=== PATIENT | female | born 1945 | race Caucasian/White ===

== ENCOUNTER → 2019-07-31 12:30 | Outpatient (CLI) | payer MEDICARE, OTHER, SELFPAY ==
--- NOTE | 2019-07-31 | DI.MRI.S_ITS ---
PROCEDURE: MR HEAD/BRAIN WO/W CON INDICATIONS: Ocular migraine vs vision changes x 9 months TECHNIQUE: Noncontrast axial T1 spin echo, axial T2 fast spin echo, sagittal and axial FLAIR, coronal T2 fast spin echo, axial gradient echo, axial diffusion and ADC through the brain. After the administration of contrast, axial and coronal T1 spin echo with fat saturation through the brain. COMPARISON: None. FINDINGS: Image quality: Excellent. CSF spaces: Basal cisterns are patent. No extra-axial fluid collections. Ventricles are normal in size and shape. Brain: No midline shift. No intracranial bleeds or masses. No abnormal intracranial enhancement. There is cerebral volume loss for age. There is a mild degree of patchy high FLAIR signal within the periventricular and subcortical white matter. The brainstem appears normal. Diffusion-weighted images demonstrate no acute ischemic insults. No chronic ischemic insults. Normal intravascular flow voids are present. Skull and face: Calvarial marrow is normal in signal. Orbits appear normal. Sinuses: Sinuses and mastoids appear clear. IMPRESSION: 1. Mild diffuse cerebral volume loss. 2. Mild degree of white matter disease. Differential considerations include small vessel ischemic disease, migraines, vasculitides, diabetes mellitus, and demyelinating disorders, such as multiple sclerosis. Dictated by: Karuna Rey M.D. on 07/31/2019 at 13:31 Approved by: Karuna Rey M.D. on 07/31/2019 at 13:34
== END ==
PROVIDERS: Family Provider Family Medicine; PCP Family Medicine; Visit Provider Physician Assistant
DX: H53.30 Unspecified disorder of binocular vision (principal)
CPT/HCPCS: 70553

== ENCOUNTER → 2019-08-26 10:37 | Outpatient (CLI) | payer MEDICARE, OTHER, SELFPAY ==
[2019-08-26 12:44] LABS: Cholesterol 246 mg/dL (140-199); HDL Cholesterol 59 mg/dL (40-60); LDL Cholesterol Calculated 171 mg/dL (<100); Triglycerides 78 mg/dL (35-150)
== END ==
PROVIDERS: PCP Family Medicine; Visit Provider Psychiatry & Neurology Neurology
DX: G45.9 Transient cerebral ischemic attack, unspecified (principal)
CPT/HCPCS: 36415; 80061

== ENCOUNTER → 2019-08-26 12:58 | Outpatient (CLI) | payer MEDICARE, OTHER, SELFPAY ==
--- NOTE | 2019-08-26 | DI.MRI.S_ITS ---
PROCEDURE: MR HEAD/BRAIN WO/W CON INDICATIONS: Unspecified disorder of binocular vision TECHNIQUE: Noncontrast axial T1 spin echo, axial T2 fast spin echo, sagittal and axial FLAIR, coronal T2 fast spin echo, axial gradient echo, axial diffusion and ADC through the brain. After the administration of contrast, axial and coronal T1 spin echo with fat saturation through the brain. COMPARISON: [facility], , MR HEAD/BRAIN WO/W CON, 07/31/2019, 12:55. FINDINGS: Image quality: Excellent. CSF spaces: Basal cisterns are patent. No extra-axial fluid collections. Ventricles are normal in size and shape. Brain: No midline shift. No intracranial bleeds or masses. No abnormal intracranial enhancement. There is cerebral volume loss for age. There is periventricular white matter chronic small vessel ischemic change. The brainstem appears normal. Diffusion-weighted images demonstrate no acute ischemic insults. No chronic ischemic insults. Normal intravascular flow voids are present. Skull and face: Calvarial marrow is normal in signal. Orbits appear normal. Note is made of bilateral lens replacements. Sinuses: Sinuses and mastoids appear clear. IMPRESSION: Unremarkable study for age, without orbital abnormalities seen. No masses or abnormal enhancement can be seen. Note is made of age-appropriate brain parenchymal volume loss and chronic small vessel ischemic changes. Dictated by: Jackson Martinez M.D. on 08/26/2019 at 16:43 Approved by: Jackson Martinez M.D. on 08/26/2019 at 16:45
== END ==
PROVIDERS: PCP Family Medicine; Visit Provider Family Medicine
DX: H53.30 Unspecified disorder of binocular vision (principal)
CPT/HCPCS: 70553; A9579

== ENCOUNTER → 2019-10-09 12:05 | Outpatient (CLI) | payer MEDICARE, OTHER, SELFPAY ==
--- NOTE | 2019-10-09 | DI.US.S_ITS ---
PROCEDURE: US ABD AORTA ANEURYSM SCREEN INDICATIONS: HX SMOKING TECHNIQUE: Real time scanning was performed of the aorta and iliac arteries, with image documentation. COMPARISON: None. FINDINGS: Aorta: Proximal aortic diameter measures 2.1 cm. Mid-aorta measures 1.5 cm. Distal aortic diameter is 1.1 cm. Iliac arteries: Right common iliac artery measures 18 cm. Left common iliac artery measures 0.8 cm. IMPRESSION: No abdominal aortic or proximal common iliac artery aneurysm. Dictated by: Elvin Tuttle [facility] Interpreted: Bill Rios MD on 10/09/2019 at 14:50 Approved by: Bill Rios M.D. on 10/09/2019 at 15:44
--- NOTE | 2019-10-09 | DI.US.S_ITS ---
PROCEDURE: US PERIPH VENOUS LOW EXTREM LT INDICATIONS: LEFT LEG SWELLING AND PAIN TECHNIQUE: Real-time imaging, as well as color and pulse Doppler interrogation, were performed of the lower extremity deep veins from the inguinal ligament to the popliteal fossa. COMPARISON: None. FINDINGS: The common femoral, femoral and popliteal veins are normally compressible, and free of intraluminal thrombus. Color and pulse Doppler demonstrate normal phasic intraluminal flow. There is normal augmentation response to distal compression maneuver. IMPRESSION: No deep venous thrombosis identified within the left lower extremity. Dictated by: Elvin Tuttle [facility] Interpreted: Bill Rios MD on 10/09/2019 at 13:56 Approved by: Bill Rios M.D. on 10/09/2019 at 15:45
== END ==
PROVIDERS: Family Provider Family Medicine; PCP Family Medicine; Visit Provider Physician Assistant
DX: Z13.6 Encounter for screening for cardiovascular disorders (principal); M79.605 Pain in left leg; M79.89 Other specified soft tissue disorders; Z87.891 Personal history of nicotine dependence
CPT/HCPCS: 76706; 93971

== ENCOUNTER → 2019-12-10 15:06 | Outpatient (CLI) | payer MEDICARE, OTHER, SELFPAY ==
--- NOTE | 2019-12-10 | DI.US.S_ITS ---
PROCEDURE: US PERIPH VENOUS LOW EXTREM BI INDICATIONS: SWELLING, MASS AND LUMP BILAT LOWER LIMBS TECHNIQUE: Real-time imaging, as well as color and pulse Doppler interrogation, were performed of the deep veins of both legs from the inguinal ligament to the popliteal fossa. COMPARISON: None. FINDINGS: Right: The common femoral, femoral and popliteal veins are normally compressible, and free of intraluminal thrombus. Color and pulse Doppler demonstrate normal phasic intravascular flow. There is normal augmentation response to distal compression maneuver. Left: The common femoral, femoral and popliteal veins are normally compressible, and free of intraluminal thrombus. Color and pulse Doppler demonstrate normal phasic intravascular flow. There is normal augmentation response to distal compression maneuver. A right-sided Gonsalez's cyst can be seen that measures 1.2 x 0.5 x 1.2 cm. IMPRESSION: Negative for deep venous thrombosis. Dictated by: Jackson Martinez M.D. on 12/10/2019 at 16:15 Approved by: Jackson Martinez M.D. on 12/10/2019 at 16:16
== END ==
PROVIDERS: Family Provider Family Medicine; PCP Family Medicine; Referring Provider Physician Assistant; Visit Provider Physician Assistant
DX: R22.42 Localized swelling, mass and lump, left lower limb (principal); M71.21 Synovial cyst of popliteal space [Baker], right knee
CPT/HCPCS: 93970

== ENCOUNTER → 2020-04-01 10:26 | Outpatient (CLI) | payer MEDICARE, OTHER, SELFPAY ==
--- NOTE | 2020-04-01 | DI.CT.S_ITS ---
PROCEDURE: CT CHEST ABDOMEN W CON INDICATIONS: LOCALIZED ENLARGED LYMPH NODES TECHNIQUE: After the administration of oral contrast and intravenous contrast, 5 mm thick sections acquired from the lung apices to the iliac crests. 5 mm coronal and sagittal reformats were performed, with additional 7 mm coronal MIP reformats through the lungs. For radiation dose reduction, the following was used: automated exposure control, adjustment of mA and/or kV according to patient size. COMPARISON: None. FINDINGS: Image quality: Excellent. CHEST: Lungs and pleura: No acute air space opacities. No pleural effusions or pneumothorax. There is near occlusion of the right upper lobe bronchus secondary to the right hilar mass. There is a subpleural 9 mm diameter nodule within the right upper lobe posterolaterally, which is indeterminate. Mediastinum: Heart size is normal. No pericardial effusion. 42 mm diameter right hilar mass is present. The right hilar mass encases and partially narrows the right upper, right lower, and right middle lobe pulmonary arteries and bronchi. Thoracic aorta and central pulmonary arteries are normal in size. Esophagus is normal in caliber. No hiatal hernia. Chest wall: No axillary or supraclavicular adenopathy by size criteria. Thyroid gland is within normal limits. ABDOMEN: Solid organs: Liver is normal in size and enhancement. Gallbladder is within normal limits. Biliary system is non dilated. Pancreas enhances normally. Spleen is normal in size and enhancement. No adrenal nodules. Kidneys are normal in size and enhancement, without hydronephrosis. Peritoneum and bowel: Bowel loops demonstrate normal wall thickness and caliber. No free fluid or air. Nodes and vessels: No retroperitoneal or mesenteric adenopathy by size criteria. Aorta and inferior vena cava are normal in caliber. Bones: There is a sclerotic density within the right medial 9th rib measuring 12 mm. There is mild chronic appearing wedging of T9. No acute vertebral body compression fractures. Miscellaneous: No ventral hernias. IMPRESSION: 1. 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 Bronchoscopic biopsy is recommended for tissue diagnosis secondary to its central location. 2. Precarinal and subcarinal jeremy metastases. 3. Indeterminate right 9th rib lesion. Indeterminate right upper lobe nodule. These could be further assessed with PETCT examination, if clinically indicated. Dictated by: Karuna Rey M.D. on 04/01/2020 at 16:54 Approved by: Karuna Rey M.D. on 04/01/2020 at 17:03
[2020-04-01 11:24] LABS: Alanine Aminotransferase 11 IU/L (<35); Albumin 3.9 g/dL (3.5-5.0); Albumin Globulin Ratio 1.2 (1.0-2.8); Alkaline Phosphatase 95 U/L (38-126); Aspartate Aminotransferase 26 IU/L (14-36); BUN Creatinine Ratio 17.7 (6-22); Bilirubin Total 0.5 mg/dL (0.2-1.3); Blood Urea Nitrogen 14 mg/dL (7-17); Calcium 9.4 mg/dL (8.4-10.2); Carbon Dioxide 30 mmol/L (22-32); Chloride 105 mmol/L (98-107); Estimated Glomerular Filt Rate > 60.0 mL/min (>60); Globulin 3.2 g/dL (1.7-4.1); Glucose 103 mg/dL (80-110); HEMOLYSIS < 15 (0-50); Potassium 4.1 mmol/L (3.4-5.1); Sodium 140 mmol/L (137-145); Total Protein 7.1 g/dL (6.3-8.2)
== END ==
PROVIDERS: Family Provider Family Medicine; PCP Family Medicine; Referring Provider Family Medicine; Visit Provider Family Medicine
DX: R93.89 Abnormal findings on diagnostic imaging of other specified body structures (principal); C34.01 Malignant neoplasm of right main bronchus; C77.1 Secondary and unspecified malignant neoplasm of intrathoracic lymph nodes; R10.10 Upper abdominal pain, unspecified; R91.1 Solitary pulmonary nodule; M89.9 Disorder of bone, unspecified
CPT/HCPCS: 36415; 71260; 74160; 80053; Q9967

== ENCOUNTER → 2021-01-14 18:57 | Outpatient (CLI) | payer MEDICARE, OTHER, SELFPAY ==
[2021-01-14 19:27] LABS: Add Manual Diff / Slide Review NO; Basophils Absolute Auto 100 /uL (0-100); Basophils Percent Auto 1.1 % (0-2); Eosinophils Absolute Auto 100 /uL (0-450); Eosinophils Percent Auto 1.3 % (2-4); Hematocrit 24.8 % (36-46); Hemoglobin 8.2 g/dL (12.0-16.0); Lymphocytes Absolute Auto 1700 /uL (1100-4500); Lymphocytes Percent Auto 19.2 % (25-40); Mean Corpuscular HGB Conc 33.2 % (30-36); Mean Corpuscular Hemoglobin 35.9 PG (26-34); Mean Corpuscular Volume 108.1 fL (80-100); Monocytes Absolute Auto 1000 /uL (0-900); Monocytes Percent Auto 11.4 % (3-14); Neutrophils Absolute Auto 6100 /uL (1500-7000); Platelet Count 307 X10^3/uL (150-400); Red Blood Cell Count 2.29 X10^6/uL (4.0-5.2); Red Cell Distribution Width 25.6 % (11.6-14.8)
[2021-01-14 19:39] LABS: Alanine Aminotransferase 54 IU/L (<35); Albumin 3.8 g/dL (3.5-5.0); Albumin Globulin Ratio 1.3 (1.0-2.8); Alkaline Phosphatase 81 U/L (38-126); Aspartate Aminotransferase 46 IU/L (14-36); BUN Creatinine Ratio 9.8 (6-22); Bilirubin Total 0.3 mg/dL (0.2-1.3); Blood Urea Nitrogen 11 mg/dL (7-17); Calcium 9.1 mg/dL (8.4-10.2); Carbon Dioxide 32 mmol/L (22-32); Chloride 103 mmol/L (98-107); Estimated Glomerular Filt Rate 47.6 mL/min (>60); Globulin 2.9 g/dL (1.7-4.1); Glucose 114 mg/dL (80-110); HEMOLYSIS < 15 (0-50); Potassium 3.7 mmol/L (3.4-5.1); Sodium 138 mmol/L (137-145); Total Protein 6.7 g/dL (6.3-8.2)
[2021-01-14 19:42] LABS: Anisocytosis 2+; Poikilocytosis 1+
[2021-01-14 19:43] LABS: Macrocytosis 1+; Ovalocytes 1+
[2021-01-15 10:07] LABS: Bacteria Urine None Seen; RBC Urine None Seen (0-5/HPF)
[2021-01-15 10:10] LABS: Appearance Urine UA CLOUDY; Bilirubin Urine UA NEGATIVE (NEGATIVE); Color Urine UA YELLOW; Glucose Urine UA NEGATIVE (Negative); Ketones Urine UA NEGATIVE (NEGATIVE); Leukocyte Esterase Urine UA NEGATIVE (NEGATIVE); Nitrite Urine UA NEGATIVE (Negative); Occult Blood Urine UA TRACE-INTACT (Negative); Protein Urine UA TRACE (Negative); Specific Gravity Urine UA 1.025 (1.000-1.035); Urobilinogen Urine UA 0.2 E.U./dL (0.2)
[2021-01-15 10:23] LABS: Amorphous Sediment Urine 4+; WBC Urine 1-5/HPF (0-5/HPF)
[2021-01-15 10:24] LABS: Culture Indicated Urine Specimen Cultured
== END ==
PROVIDERS: Family Provider Family Medicine; PCP Family Medicine; Referring Provider Internal Medicine; Visit Provider Internal Medicine
DX: R74.8 Abnormal levels of other serum enzymes (principal); I87.2 Venous insufficiency (chronic) (peripheral)
CPT/HCPCS: 36415; 80053; 81001; 85025

== ENCOUNTER 2021-02-23 18:14 | Emergency (ER) | payer MEDICARE, OTHER, SELFPAY ==
[2021-02-23] VITALS (12 sets, daily range): BP systolic 110–140; BP diastolic 62–71; PULSE 57–76; RESP 9–27; TEMP 36.8; O2SAT 95–100; BMI 19.7
--- NOTE | 2021-02-23 | DI.RAD.S_ITS ---
PROCEDURE: XR SHOULDER LT MIN 2V INDICATIONS: POST REDUCTION TECHNIQUE: Single frontal view of the shoulder were acquired. COMPARISON: [facility], CR, XR SHOULDER LT MIN 2V, 02/23/2021, 19:22. FINDINGS: Bones: No dislocations. No suspicious bony lesions. Visualized ribs appear intact. Soft tissues: No suspicious soft tissue calcifications. IMPRESSION: Successful reduction of inferior dislocation/subluxation, with acute fracture at the humeral head/neck junction again noted. Dictated by: Chapo Garcia M.D. on 02/24/2021 at 8:16 Approved by: Chapo Garcia M.D. on 02/24/2021 at 8:17
--- NOTE | 2021-02-23 19:20 | DI.RAD.S_ITS ---
PROCEDURE: XR SHOULDER LT MIN 2V INDICATIONS: fell today on shoulder TECHNIQUE: 2 views of the shoulder were acquired. COMPARISON: [facility] ([facility], XR SHOULDER LT 1V, 02/23/2021, 13:48. FINDINGS: Bones: Humeral head is noted the inferior to the glenohumeral joint space. There is an appearance of humeral head fracture. Soft tissues: No suspicious soft tissue calcifications. IMPRESSION: Overall appearance anterior dislocation with what appears to be humeral head fracture. Dictated by: Monica Segura M.D. on 02/23/2021 at 19:45 Approved by: Monica Segura M.D. on 02/23/2021 at 19:47
--- NOTE | 2021-02-23 19:55 | ED.FALL ---
HPI - Fall General Chief Complaint: Fall Stated Complaint: Fell. Dislocated shoulder today Time Seen by Provider: 02/23/21 19:51 Source: patient Mode of arrival: Ambulatory Limitations: no limitations History of Present Illness HPI Narrative: Patient is a 75-year-old female. Has metastatic cancer and is on hospice. Is here for evaluation of a shoulder dislocation. She was sent from [facility]. She stated that she fell earlier today landing on her left side. She was seen at a clinic on the [place] and sent here for evaluation. Related Data Allergies Allergy/AdvReac Type Severity Reaction Status Date / Time No Known Drug Allergies Allergy Verified 02/23/21 18:26 Review of Systems Constitutional Constitutional: Denies fever(s) and Denies headache(s) Eyes Eyes: Denies blurry vision ENT Ears, Nose, Mouth, and Throat: Denies vertigo, Denies dizziness, Denies headache(s) and Denies sore throat Cardiovascular Cardiovascular: Denies chest pain and Denies dyspnea Respiratory Respiratory: Denies dyspnea Gastrointestinal Gastrointestinal: Denies abdominal pain Genitourinary Genitourinary: Denies dysuria Genitourinary: Denies dysuria Musculoskeletal Musculoskeletal: Denies tingling Comments: Left arm pain Integumentary/Breasts Skin/Breast: Denies lesions and Denies rash Neurologic Neurologic: Denies vertigo, Denies dizziness, Denies headache(s) and Denies tingling Psychiatric Psychiatric: Denies depression Hematologic/Lymphatic On Anticoagulants: No Allergic/Immunologic Allergic/Immunologic: Denies urticaria Patient History Medical History Lung cancer metastatic to bone Social History Smoking Status: Unknown if ever smoked Smoking Status: Unknown if ever smoked alcohol intake frequency: holidays/special occasions only Substance Use Type: does not use Exam Initial Vital Signs Initial Vital Signs: Vital Signs Temperature 98.2 F 02/23/21 18:24 Pulse Rate 69 02/23/21 18:24 Respiratory Rate 14 02/23/21 18:24 Blood Pressure 110/70 02/23/21 18:24 Pulse Oximetry 98 02/23/21 18:24 Const General: cooperative Limitations: mental status not altered [facility] Head: normal to inspection and normocephalic Eyes General: appearance normal, both eyes and all related structures Resp Effort & Inspection: normal respiratory effort Auscultation: clear to auscultation bilaterally Cardio Rate: regular rate Rhythm: regular rhythm Pulses: radial pulses present on the left GI Inspection: non-distended Palpation: soft Back/Spine/Pelvis Cervical Spine: No cervical spinal tenderness Skin Lesions: no lesions Rashes: no rashes Neuro General: patient alert, patient awake and patient oriented x3 Cognition: normal cognition Speech: speech normal Other: Patient does have sensation to the lateral aspect of the upper arm. Extrem General: capillary refill normal Other: Patient does have tenderness and obvious deformity to left shoulder. Her left elbow and left wrist and left forearm and left hand are unremarkable. There is no other orthopedic injuries found on the exam or reported by the patient. Psych Appearance: grossly normal and well kempt Procedures Orthopedic Joint Reduction Joint #1: Time Out Performed: Yes Side: left Joint Reduction Location: shoulder Analgesia: procedural sedation Shoulder Technique Used (if applicable): Milch Technique used: direct manipulation Post-reduction neuro exam: intact Post-reduction vascular: intact Post Reduction X-Ray Obtained: Yes Post Reduction X-Ray Results: reduced Splint Applied: No Patient Tolerated Procedure: Well and No complications Orthopedic Splinting/Casting Injury #1: Side: left Upper Extremity Injury Location: shoulder Upper Extremity Immobilizer: sling/shoulder immobilizer Post splinting neuro exam: intact Post splinting vascular exam: intact Placed by: Provider Procedural Sedation Consent signed: Yes Time out performed: Yes Indication: fracture/dislocation reduction Presedation Evaluation: See HPI ASA Class: III Mallampati Airway Classification: Class I Preparation: application development project manager applied, pulse oximeter, capnometry used and supplemental O2 applied IV Propofol dose (mg): 50 Intraservice time/total sedation time (min): 15 ED Sedation Level: Moderate (Concious) Patient Tolerated Procedure: Well Complications: none Course Orders Ordered: ED Orders 02/23/21 19:20 XR shoulder LT min 2V Stat 02/23/21 21:16 RT Consult Eval and Treat Now Discontinued Medications Hydromorphone HCl (Hydromorphone 1 Mg Inj) 1 mg IM NOW ONE Stop: 02/23/21 19:56 Hydromorphone HCl (Hydromorphone 1 Mg Inj) 1 mg IV NOW ONE Stop: 02/23/21 20:18 Last Admin: 02/23/21 20:19 Dose: 1 mg Documented by: TOMMY Sodium Chloride (Normal Saline 0.9%) 1,000 mls @ 150 mls/hr IV CONT SOFÍA Last Infusion: 02/23/21 23:17 Dose: 0 mls/hr Documented by: Admin: 02/23/21 21:34 Dose: 150 mls/hr Documented by: TOMMY Propofol (Propofol 200 Mg/20 Ml Vial) 50 mg 1 mg/kg (50 mg) IV NOW ONE Stop: 02/23/21 21:15 Last Admin: 02/23/21 21:51 Dose: 50 mg Documented by: TOMMY Vital Signs Vital signs: Vital Signs - 8 hr 02/23/21 18:24 02/23/21 21:45 02/23/21 22:01 Temperature 98.2 F Pulse Rate 69 76 68 Respiratory Rate 14 18 12 Blood Pressure 110/70 140/66 Pulse Oximetry 98 96 99 02/23/21 22:04 02/23/21 22:05 02/23/21 22:10 Temperature Pulse Rate 59 L 61 62 Respiratory Rate 14 16 9 L Blood Pressure Pulse Oximetry 95 99 02/23/21 22:13 02/23/21 22:20 02/23/21 22:30 Temperature Pulse Rate 57 L 60 58 L Respiratory Rate 9 L 14 27 H Blood Pressure 132/66 131/68 135/71 Pulse Oximetry 99 99 99 02/23/21 22:40 02/23/21 23:00 02/23/21 23:15 Temperature 98.2 F Pulse Rate 57 L 57 L 60 Respiratory Rate 13 18 Blood Pressure 128/62 128/62 Pulse Oximetry 99 97 100 MDM - Fall Lab Data Labs: Point of Care Testing Test Results Not applicable Imaging Data Extremity x-ray #1: Radiologist's Impression: [address] [id number] ReportSigned Patient: Zee Busch LMR#: [id number]: 6Acct:[id number]/Sex: 75 / FDate of Service: 02/23/21Loc: EDAccession Number: [id number] Procedure: XR shoulder LT min 2V Ordering Provider: Lanker,Aaron D.O. PROCEDURE: XR SHOULDER LT MIN 2V INDICATIONS: fell today on shoulder TECHNIQUE: 2 views of the shoulder were acquired. COMPARISON: [facility] ([facility]), CR, XR SHOULDER LT 1V, 02/23/2021, 13:48. FINDINGS: Bones: Humeral head is noted the inferior to the glenohumeral joint space. There is an appearance of humeral head fracture. Soft tissues: No suspicious soft tissue calcifications. IMPRESSION: Overall appearance anterior dislocation with what appears to be humeral head fracture. Dictated by: Monica Segura M.D. on 02/23/2021 at 19:45 Approved by: Monica Segura M.D. on 02/23/2021 at 19:47 Post reduction x-ray: Radiologist's Impression: Fracture involving the humeral head with rotation. No dislocation MDM Narrative Medical decision making narrative: Prior to the attempted reduction here in the emergency department the x-rays do show a proximal humerus fracture. I did discuss this with her and her . Her shoulder was reduced without complication with procedural sedation. Repeat x-ray show continued fracture but reduced dislocation. She was placed in her sling. She was neurovascularly intact. She was given care instructions and return precautions. She was also given information with regard to the orthopedic group here in town. She is going to contact both her primary doctor and also her hospice doctor tomorrow for follow-up. She expressed understanding and agreement. Discharge Plan Departure Patient Disposition: Home Clinical Impression: Anterior shoulder dislocation, Fracture of proximal end of humerus Instructions: How to Use a Sling, DI for Shoulder Dislocation, DI for Shoulder Fracture Activity Restrictions/Additional Instructions: Recommend that tomorrow you contact your primary doctor and also your hospice providers as he will need physical therapy. I also recommend you contact the [facility] group at [phone] for a follow-up with regard to your arm fracture. You can take the sling off in order to shower and change your clothes. I would recommend that you wear it at night. Continue all of your medications as directed. Return to the emergency department for any new or worsening symptoms. The physician groups here at the hospital are [facility]: Their phone number is [phone] [facility]: Their phone number is [phone] [facility]: Their phone number is [phone] Referrals: Reji Mathews MD [Physician] - Kenneth Sharpe MD [Primary Care Provider] -
[2021-02-23] MEDS: HYDROMORPHONE 1 MG INJ IV (20:19)
[2021-02-23] MEDS: SODIUM CHLORIDE 0.9% 1,000 ML 150 ML IV (21:34)
[2021-02-23] MEDS: propofoL 200 MG/20 ML VIAL 50 MG IV (21:51)
--- NOTE | 2021-02-23 22:03 | PC.NURSE ---
Post-reduction shoulder xray
== END 2021-02-23 23:17 | disposition home or self-care (01) ==
PROVIDERS: Emergency Provider Emergency Medicine; Family Provider Family Medicine; PCP Family Medicine
DX: S42.202A Unspecified fracture of upper end of left humerus, initial encounter for closed fracture (principal); W19.XXXA Unspecified fall, initial encounter
CPT/HCPCS: 24505; 73020; 73030; 96361; 96374; 99152; 99284; J1170; J2704